=== PATIENT | female | born 1960 | race Two or more races ===

== ENCOUNTER 2023-04-07 05:30 | Day surgery (SDC) | payer OTHER ==
[~2023-04-07 05:30] MED LIST: ATORVASTATIN CA40 MG PO; AVAPRO300 MG PO; HORIZANT300 MG PO; LEVO-T75 MCG PO; PANTOPRAZOLE SO40 MG PO; PEPCID AC20 MG PO; PLAQUENIL PO; ZYRTEC10 M3 PO
[2023-04-07] MEDS ORDERED: PERCOCET 5-3251 EACH PO (09:13)
[2023-04-07] MEDS ORDERED: RECTICARE30 GM TOP (09:14)
== END 2023-04-07 17:00 | disposition home or self-care (01) ==
LOC: CIR.AMB 05:30
PROVIDERS: ATTEND Surgery
DX: K64.2 Third degree hemorrhoids (principal); K64.4 Residual hemorrhoidal skin tags; K64.8 Other hemorrhoids; R19.4 Change in bowel habit; K92.1 Melena; Z20.822 Contact with and (suspected) exposure to COVID-19; I10 Essential (primary) hypertension